=== PATIENT | female | born 2000 | race Two or more races ===

== ENCOUNTER 2023-04-05 00:23 | Emergency (ER) | payer MEDICAID, OTHER ==
[~2023-04-05] VITALS: Ht 160 cm; Wt 80.0 kg
[2023-04-05 02:00] VITALS: BP 128/71; PULSE 90; RESP 16; TEMP 98.1; O2SAT 99
[2023-04-05] MEDS ORDERED: ZOFR4T PO (03:35)
[2023-04-05] MEDS ORDERED: IBU600T PO (03:35)
== END 2023-04-05 03:40 | disposition home or self-care (01) ==
LOC: ER 00:23
DX: N83.202 Unspecified ovarian cyst, left side (principal); R10.2 Pelvic and perineal pain
CPT/HCPCS: 36415; 76856; 84702